=== PATIENT | male | born 1985 | race Hispanic/Latino ===

== ENCOUNTER 2017-10-18 12:20 | Inpatient (IN) | payer MEDICAID ==
[2017-10-18 12:25] VITALS: BMI 23.5
--- NOTE | 2017-10-18 13:15 | C.PDOC ---
History Of Present Illness 32 yr old male with history of heroin and alcohol use, was seen 2 days ago after overdosing of heroin and discharged 24 hrs later, presents to the ER today with complaints of nausea, cramping and diarrhea. Patient reports last use was 48 hrs ago. Patient states he called detox earlier today asking for availability and was told if he comes in before 3pm, he might have a chance. Patient denies SI, HI, fever, chills, chest pain, SOB, vomiting, weakness, numbness or headache. Time Seen by Provider: 10/18/17 13:20 Chief Complaint (Nursing): Substance Abuse History Per: Patient History/Exam Limitations: no limitations Onset/Duration Of Symptoms: Days Past Medical History Reviewed: Historical Data, Nursing Documentation, Vital Signs Vital Signs: Last Vital Signs Temp 97.8 F 10/18/17 16:11 Pulse 80 10/18/17 16:11 Resp 20 10/18/17 16:11 BP 128/78 10/18/17 16:11 Pulse Ox 98 10/18/17 16:11 Family History: States: No Known Family Hx - Social History Hx Alcohol Use: Yes Hx Substance Use: Yes (heroin , xanax) - Immunization History Hx Tetanus Toxoid Vaccination: No Hx Influenza Vaccination: No Hx Pneumococcal Vaccination: No Review Of Systems Except As Marked, All Systems Reviewed And Found Negative. Constitutional: Negative for: Fever, Chills Cardiovascular: Negative for: Chest Pain Respiratory: Negative for: Shortness of Breath Gastrointestinal: Positive for: Nausea, Diarrhea, Other (+ cramping). Negative for: Vomiting Neurological: Negative for: Weakness, Numbness Physical Exam - Physical Exam Appears: Non-toxic, No Acute Distress, Other (no signs of withdrawls) Skin: Warm, Dry, No Rash, Other (+ fresh needle track in both antecubital fossa , no evidence of abscess) Head: Atraumatic, Normacephalic Eye(s): bilateral: Normal Inspection, PERRL, EOMI Oral Mucosa: Moist Cardiovascular: Rhythm Regular, No Murmur, Other (no excelerated rate) Respiratory: Normal Breath Sounds, No Rales, No Rhonchi, No Stridor, No Wheezing Gastrointestinal/Abdominal: Normal Exam, Soft, No Tenderness, No Guarding, No Rebound Extremity: Normal ROM, No Swelling Neurological/Psych: Oriented x3, Normal Speech, Normal Motor, Normal Sensation ED Course And Treatment - Laboratory Results Result Diagrams: 10/18/17 13:32 10/18/17 13:32 O2 Sat by Pulse Oximetry: 98 (RA) Pulse Ox Interpretation: Normal Medical Decision Making Medical Decision Making: PLAN: * Alcohol Serum * Drug Screen * Labs * Urinalysis Pt is medically cleared for detox admission Disposition - Disposition Disposition: HOSPITALIZED Disposition Time: 17:31 Condition: GOOD - Clinical Impression Clinical Impression: Drug abuse - Scribe Statement The provider has reviewed the documentation as recorded by the Addison Finch Provider Attestation: All medical record entries made by the Addison were at my direction and personally dictated by me. I have reviewed the chart and agree that the record accurately reflects my personal performance of the history, physical exam, medical decision making, and the department course for this patient. I have also personally directed, reviewed, and agree with the discharge instructions and disposition.
[2017-10-18 13:40] LABS: BASO # 0.1 K/uL (0.0-0.2); BASO % 0.7 % (0.0-2.0); EOS % 0.1 % (0.0-4.0); HEMOGLOBIN 14.8 g/dL (12.0-18.0); LYMPH # 1.3 K/uL (1.0-4.3); LYMPH % 12.4 % (20.0-40.0); MEAN CELL VOLUME 89.1 fL (80.0-94.0); MEAN CORPUSCULAR HEMOGLOBIN 30.2 pg (27.0-31.0); MEAN CORPUSCULAR HGB CONC 33.9 g/dL (33.0-37.0); MEAN PLATELET VOLUME 8.7 fL (7.2-11.7); MONO # 0.9 K/uL (0.0-0.8); MONO % 9.1 % (0.0-10.0); NEUT % 77.7 % (50.0-75.0); RBC 4.91 Mil/uL (4.40-5.90); RED CELL DISTRIBUTION WIDTH 13.7 % (11.5-14.5); WHITE BLOOD COUNT 10.2 K/uL (4.8-10.8)
[2017-10-18 13:55] LABS: ALB/GLOB RATIO 0.9 (1.0-2.1); ALT/SGPT 41 U/L (21-72); AST/SGOT 43 U/L (17-59); BLOOD UREA NITROGEN 17 mg/dL (9-20); CALCIUM 9.7 mg/dl (8.6-10.4); GFR AFRICAN-AMERICAN > 60; GFR NON-AFRICAN AMERICAN > 60
[2017-10-18 14:52] LABS: URINE BILIRUBIN NEGATIVE (NEGATIVE); URINE BLOOD NEGATIVE (NEGATIVE); URINE CALCIUM OXALATE CRYSTALS OCC /hpf (<OCC); URINE CLARITY Hazy (Clear); URINE COLOR Amber (YELLOW); URINE GLUCOSE (UA) NORMAL (Normal); URINE LEUKOCYTE ESTERASE NEG Leu/uL (Negative); URINE PROTEIN 1+ mg/dL (NEGATIVE)
[2017-10-18 14:58] LABS: BARBITURATES, UR NEGATIVE (NEGATIVE); BENZODIAZEPINES, UR NEGATIVE (NEGATIVE); PHENCYCLIDINE, UR NEGATIVE (NEGATIVE)
[2017-10-18 15:31] LABS: OPIATES, UR POSITIVE (NEGATIVE)
--- NOTE | 2017-10-18 15:52 | PCM.BM ---
<Demetria Augustine - Last Filed: 10/18/17 15:50> Treatment Plan Problems - Problems identified on initial assessmt potiential for opiate withdrawal Date Initiated: 10/18/17 Time Initiated: 15:51 Assessment reference: NA Status: Active Treatment assets and liabiliti Patient Assests: ADL independent, physically healthy Patient Liabilities: relationship conflicts, substance abuse - Milieu Protocol Maintain good personal hygiene: daily Encourage regular showers, daily Remind patient to perform daily oral care, daily Assist patient to perform ADL's Maintain personal safety: every shift Educate patient to report safety concerns to staff, every shift Monitor environment for contraband/sharps Medication safety: Monitor for expected outcome, potential side effects: every shift, Assess barriers to learning: every shift, Assess readiness for medication education: every shift <Norma Covarrubias - Last Filed: 10/20/17 08:55> - Diagnosis (1) Opioid use disorder, severe, dependence Status: Acute Interventions: 10/20/17 08:55 * Assess 7x/week regarding severity of withdrawal * Educate regarding risks, benefits, side effects and alternatives of medications * Use Motivational Interviewing for abstinence * Use CBT for relapse prevention * Medication management for withdrawal symptoms * Encourage medication assisted treatment *
[2017-10-18] MEDS ORDERED: Aluminum Hydroxide/Magnesium Hydroxide Susp (30 mL) PO PRN (16:30)
--- NOTE | 2017-10-19 14:10 | PCM.PSYCH ---
Initial Psychiatric Evaluation - Initial Psychiatric Evaluation Type of Admission: Voluntary Legal Status: Capacity Chief Complaint (in patient's own words): "I'm here for detox" History of Present Illness and Precipitating Events: HPI: 32 y.o. M, from , with 3 daughters (5 yo, 6 yo, 13 yo), recently unemployed and uninsured, who presented to the ED yesterday requesting detox. Patient reports a 2 year history of using heroin. He estimates his daily use at 40 bags of heroin IV/day. Patient also admits to using oxycodone, Xanax and/or Klonopin (2 bars/day), cocaine, crack cocaine, MDMA, and tobacco (1ppd) as well. Denies any use of other substances. He recently had an unintentional overdose 3 days ago, in which he was treated in the ED of [facility] ([place], [place]). That was his last use. Following treatment, patient returned home and began having withdrawal symptoms, thus prompting his arrival here for detox. At this time, patient reports many withdrawal symptoms including nausea, vomiting/ wretching, diarrhea, abdominal pain, subjective fever, chills, tremors, diaphoresis, and trouble staying asleep. Denies any SI/HI, seizures, cough, SOB , CP or BOWEN. Patient does not have any plans following discharge but is interested in a long-term rehab program. Detox Hx: 2x in the past Rehab Hx: Denies Medical Hx: Denies Medications: Denies Psych Hx: Denies Fam Hx: Denies Occupation: Was worked in a warehouse, quit 3 months ago Legal: Denies Current Medications: Active Medications Generic Name Dose Route Start Last Admin Trade Name Freq PRN Reason Stop Dose Admin Al Hydrox/Mg Hydrox/Simethicone 30 ml 10/18/17 16:30 Maalox 30 Ml PO TID PRN Indigestion / Heartburn Clonidine HCl 0.1 mg 10/18/17 16:30 Catapres PO Q8 PRN COWS Score More or Equal to 5 Gabapentin 300 mg 10/19/17 14:00 10/19/17 13:30 Neurontin PO 300 mg TID SANDRA Administration Hydroxyzine HCl 25 mg 10/18/17 16:31 10/18/17 21:17 Atarax PO 25 mg Q6 PRN Administration Agitation Loperamide HCl 2 mg 10/18/17 16:30 Imodium PO Q8 PRN Diarrhea Methadone HCl 15 mg 10/19/17 10:00 10/19/17 09:27 Methadone PO 10/22/17 09:59 15 mg DAILY SANDRA Administration Taper Nicotine 1 patch 10/19/17 11:30 10/19/17 11:31 Nicoderm Cq TD 1 patch DAILY SANDRA Administration Ondansetron HCl 4 mg 10/18/17 16:30 Zofran Tab PO Q8 PRN Nausea/Vomiting Pseudoephedrine HCl 60 mg 10/18/17 16:30 Sudafed Tab PO QID PRN Nasal/Sinus Congestion Trazodone HCl 50 mg 10/18/17 22:00 10/18/17 21:17 Desyrel PO 50 mg HS SANDRA Administration Past Psychiatric History - Past Psychiatric History Previous Treatment History: None History of Abuse: Denies History of ETOH/Drug Use: (+) heroin, opioids, cocaine, crack cocaine, MDMA Pertinent Medical Hx (Current Medical&Sleep Prob, Allergies): Allergies Allergy/AdvReac Type Severity Reaction Status Date / Time No Known Allergies Allergy Verified 10/18/17 12:24 No Known Home Med 10/18/17 Review of Systems - Constitutional Constitutional: Chills, Sweats - Gastrointestinal Gastrointestinal: Abdominal Pain, Diarrhea, Nausea, Vomiting - Neurological Additional comments: (-) Seizure - Psychiatric Psychiatric: Suicidal Ideation ( ) Additional comments: (+) trouble sleeping Mental Status Examination - Personal Presentation Personal Presentation: Looks older than stated age - Affect Affect: Broad - Motor Activity Motor Activity: Calm - Speech Speech: Organized - Mood Mood: Neutral - Formal Thought Process Formal Thought Process: No Impairment - Obsessions/Compulsions Obsessions: No Compulsions: No - Cognitive Functions Orientation: Person, Place, Situation, Time Sensorium: Alert Attention/Concentration: Attentive Abstract Thinking: [place] Estimate of Intelligence: Average Judgement: Intact, as evidence by: Insight regarding need for hospitalization Memory: Recent intact, as evidence by: Ability to recall events of the day, Remote intact, as evidenced by: Abilit to recall sig. 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 Attend groups and activities Supportive therapy and psychoeducation [place] for abstinence CBT for relapse prevention Encourage MAT Refer to rehab or IOP, and self-help groups Smoking cessation with FL Nicotine patch 33 min Projected ELOS: 4-5 days Prognosis: Good with treatment Discharge Plan and Discharge Criteria: Rehab and MAT - Smoking Cessation Smoking Cessation Initiated: Yes
--- NOTE | 2017-10-20 13:35 | PCM.PYCHPN ---
Psychiatric Progress Note - Psychiatric Progress Note Patient seen today, length of contact: 15 min Patient Chief Complaint: "I'm having some trouble sleeping" Problems Identified/Issues Discussed: The pt is seen, chart reviewed, case discussed with staff. Support given, CBT and KS used briefly. Patient does admit to having some difficulty sleeping at night. He is otherwise feeling well overall. No other additional symptoms reported, improving slowly and needs more time. No SEs from medications, risks discussed. After care discussed, patient would like to explore his options with a long-term program such as [facility], following discharge. Medication Change: Yes (detox changes daily, doses of seroquel and trazodone increased) Medical Record Reviewed: Yes Mental Status Examination - Cognitive Function Orientation: Person, Place, Situation, Time Memory: Intact Attention: WNL Concentration: WNL Association: WNL Fund of Knowledge: WNL - Mood Mood: Neutral - Affect Affect: Broad - Speech Speech: Appropriate - Formal Thought Process Formal Thought Process: No Impairment - Suicidal Ideation Suicidal Ideation: No - Homicidal Ideation Homicidal Ideation: No Goal/Treatment Plan - Goal/Treatment Plan Need for Continued Stay: Remain at risks for inpatient hospitalization, Discharge may exacerbated symptoms, Severe functional impairment Progress Toward Problem(s) and Goals/Treatment Plan: Methadone detox Gabapentin for augmentation and benzos/cocaine Monitor benzo wdw sxs As needed medications, will increase dose of trazodone and seroquel to help improved sleep disturbances All risks, benefits and alternatives of the meds discussed, and the pt agreed and understood. Attend groups and activities Supportive therapy and psychoeducation [place] for abstinence CBT for relapse prevention Encourage MAT Refer to rehab or IOP, and self-help groups Smoking cessation with KS Nicotine patch Estimated Date of D/C: 10/23/17 - Smoking Cessation Smoking Cessation Initiated: Yes
--- NOTE | 2017-10-21 14:00 | PCM.PYCHPN ---
Psychiatric Progress Note - Psychiatric Progress Note Patient seen today, length of contact: 16 min Patient Chief Complaint: "I'm feeling much better" Problems Identified/Issues Discussed: The pt is seen, chart reviewed, case discussed with staff. Support given, CBT and MN used briefly. Patient states that he is feeling much better today. Slept fine and feeling well overall. No other additional symptoms reported, improving slowly and needs more time. No SEs from medications, risks discussed. After care discussed, patient would like to continue long-term care at [facility] Medication Change: Yes (detox changes daily) Medical Record Reviewed: Yes Mental Status Examination - Cognitive Function Orientation: Person, Place, Situation, Time Memory: Intact Attention: WNL Concentration: WNL Association: WN Fund of Knowledge: WNL - Mood Mood: Neutral - Affect Affect: Broad - Speech Speech: Appropriate - Formal Thought Process Formal Thought Process: No Impairment - Suicidal Ideation Suicidal Ideation: No - Homicidal Ideation Homicidal Ideation: No Goal/Treatment Plan - Goal/Treatment Plan Need for Continued Stay: Remain at risks for inpatient hospitalization, Discharge may exacerbated symptoms, Severe functional impairment Progress Toward Problem(s) and Goals/Treatment Plan: Methadone detox Gabapentin for augmentation and benzos/cocaine Monitor benzo wdw sxs As needed medications, will continue trazodone and seroquel, as patient's sleep improved All risks, benefits and alternatives of the meds discussed, and the pt agreed and understood. Attend groups and activities Supportive therapy and psychoeducation [place] for abstinence CBT for relapse prevention Encourage MAT Refer to rehab or IOP, and self-help groups Smoking cessation with [place] Nicotine patch Estimated Date of D/C: 10/23/17 - Smoking Cessation Smoking Cessation Initiated: Yes
--- NOTE | 2017-10-21 16:52 | RAD ---
HISTORY: COMPARISON: No prior. TECHNIQUE: Chest PA and lateral FINDINGS: LINES AND TUBES: None. LUNG AND PLEURA: The lungs are hyperinflated and there is peribronchial thickening with chronic changes in both lungs. No focal consolidation. HEART AND MEDIASTINUM: The heart is not enlarged. The hilar and mediastinal contours are within normal limits. SKELETAL STRUCTURES: The bony structures are within normal limits for the patient's age. VISUALIZED UPPER ABDOMEN: Normal. OTHER FINDINGS: None. IMPRESSION: No active pulmonary disease. COPD.
[2017-10-22 09:44] VITALS: RESP 18
--- NOTE | 2017-10-22 12:11 | PCM.PYCHPN ---
Psychiatric Progress Note - Psychiatric Progress Note Patient seen today, length of contact: 17 min Patient Chief Complaint: "I feel sluggish" Problems Identified/Issues Discussed: The pt is seen, chart reviewed, case discussed with staff. Support given, CBT and AL used briefly No new symptoms reported, improving slowly and needs more time No SEs from medications, risks discussed. After care discussed Medication Change: Yes (detox changes daily) Medical Record Reviewed: Yes Mental Status Examination - Cognitive Function Orientation: Person, Place, Situation, Time Memory: Intact Attention: WNL Concentration: WNL Association: WNL Fund of Knowledge: WNL - Mood Mood: Neutral - Affect Affect: Broad - Speech Speech: Appropriate - Formal Thought Process Formal Thought Process: No Impairment - Suicidal Ideation Suicidal Ideation: No - Homicidal Ideation Homicidal Ideation: No Goal/Treatment Plan - Goal/Treatment Plan Need for Continued Stay: Remain at risks for inpatient hospitalization, Discharge may exacerbated symptoms, Severe functional impairment Progress Toward Problem(s) and Goals/Treatment Plan: Methadone detox Gabapentin for augmentation and benzos/cocaine Monitor benzo wdw sxs As needed medications, will continue trazodone and seroquel, as patient's sleep improved All risks, benefits and alternatives of the meds discussed, and the pt agreed and understood. Attend groups and activities Supportive therapy and psychoeducation AL for abstinence CBT for relapse prevention Encourage MAT Refer to rehab or IOP, and self-help groups Smoking cessation with AL Nicotine patch Estimated Date of D/C: 10/23/17
[2017-10-23 06:19] VITALS: BP 115/60
--- NOTE | 2017-10-23 08:36 | PCM.PYCHDC ---
Mental Status Examination - Mental Status Examination Orientation: Person, Place, Situation, Time Memory: Intact Mood: Anxious Affect: Constricted Attention: WNL Concentration: WNL Association: WNL Fund of Knowledge: WNL Formal Thought Process: No Impairment Suicidal Ideation: No Current Homicidal Ideation?: No Discharge Summary - Discharge Note Reason for Hospitalization: Heroin detox Consultations:: List each consultation separately and include: 1. Reason for request. 2. Findings. 3. Follow-up Summary of Hospital Course include:: 1. Description of specific treatment plan utilized for patients during their course of treatmen. 2. Summarize the time- course for resolution of acute symptoms and/or regressed behaviors. 3. Describe issues identified and worked on during hospitalization. 4. Describe medication utilized. 5. Describe medical problems identified and treated. 6. Reassessment of suicide risk Summary of Hospital Course: On admission: 32 y.o. M, from , with 3 daughters (5 yo, 6 yo, 13 yo), recently unemployed and uninsured, who presented to the ED yesterday requesting detox. Patient reports a 2 year history of using heroin. He estimates his daily use at 40 bags of heroin IV/day. Patient also admits to using oxycodone, Xanax and/or Klonopin (2 bars/day), cocaine, crack cocaine, MDMA, and tobacco (1ppd) as well. Denies any use of other substances. He recently had an unintentional overdose 3 days ago, in which he was treated in the ED of [facility] ([place], [place]). That was his last use. Following treatment, patient returned home and began having withdrawal symptoms, thus prompting his arrival here for detox. At this time, patient reports many withdrawal symptoms including nausea, vomiting/ wretching, diarrhea, abdominal pain, subjective fever, chills, tremors, diaphoresis, and trouble staying asleep. Denies any SI/HI, seizures, cough, SOB , CP or BOWEN. Patient does not have any plans following discharge but is interested in a long-term rehab program. Hospital course: The pt was admitted and started on treatment with psychotherapy, support, psychoeducation and medications. KS and CBT used. The pt attended groups and activities, as well as milieu therapy. All the risks and benefits of medications are discussed and the patient understood and agreed. The pt improved with the treatments provided. After care discussed with the patient. He went to [facility] - Diagnosis (1) Opioid use disorder, severe, dependence Status: Acute - Final Diagnosis (DSM 5) Condition upon Discharge: GOOD Disposition: REHAB FACILITY/REHAB UNIT Follow-up Treatment Plan: He refused rx Follow after care plan as discussed. Use relapse prevention skills Return to ER or call 911 if suicidal, homicidal or symptoms relapse. Stay away from stress, alcohol and drugs. See primary doctor regularly and get labs. - Smoking Cessation Smoking Cessation Medication prescribed: No
[2017-10-23 09:47] VITALS: PULSE 96; TEMP 97.6; O2SAT 98
== END 2017-10-23 09:45 | DRG 895 ==
LOC: C.ER 12:20 → C.7D 15:35
PROVIDERS: ADMIT Psychiatry & Neurology Psychiatry; ATTEND Psychiatry & Neurology Psychiatry
PROC: HZ2ZZZZ Detoxification Services for Substance Abuse Treatment (ICD-10-PCS; principal; 2017-10-18)
PROC: HZ46ZZZ Group Counseling for Substance Abuse Treatment, Psychoeducation (ICD-10-PCS; 2017-10-18)
PROC: HZ36ZZZ Individual Counseling for Substance Abuse Treatment, Psychoeducation (ICD-10-PCS; 2017-10-18)
PROC: HZ91ZZZ Pharmacotherapy for Substance Abuse Treatment, Methadone Maintenance (ICD-10-PCS; 2017-10-18)
PROC: HZ59ZZZ Individual Psychotherapy for Substance Abuse Treatment, Supportive (ICD-10-PCS; 2017-10-18)
PROC: HZ90ZZZ Pharmacotherapy for Substance Abuse Treatment, Nicotine Replacement (ICD-10-PCS; 2017-10-18)
DX: F11.23 Opioid dependence with withdrawal (principal); F13.90 Sedative, hypnotic, or anxiolytic use, unspecified, uncomplicated; F14.90 Cocaine use, unspecified, uncomplicated; F17.210 Nicotine dependence, cigarettes, uncomplicated

== ENCOUNTER 2019-01-13 19:27 | Inpatient (IN) | payer SELFPAY ==
[2019-01-13 19:28] VITALS: BMI 23.5
[2019-01-13 21:16] LABS: BASO % 0.5 % (0.0-2.0); EOS # 0.3 K/uL (0.0-0.7); HEMOGLOBIN 13.5 g/dL (12.0-18.0); LYMPH % 20.1 % (20.0-40.0); MEAN CELL VOLUME 90.6 fL (80.0-94.0); MEAN CORPUSCULAR HGB CONC 34.2 g/dL (33.0-37.0); MEAN PLATELET VOLUME 8.5 fL (7.2-11.7); MONO % 10.7 % (0.0-10.0); NEUT # 6.4 K/uL (1.8-7.0); NEUT % 65.7 % (50.0-75.0); NRBC % 0.1 % (0.0-2.0); RBC 4.36 Mil/uL (4.40-5.90); WHITE BLOOD COUNT 9.7 K/uL (4.8-10.8)
[2019-01-13 21:21] LABS: SQUAMOUS EPITHIAL < 1 /hpf (0-5); URINE BILIRUBIN NEGATIVE (NEGATIVE); URINE BLOOD NEGATIVE (NEGATIVE); URINE CLARITY Clear (Clear); URINE COLOR Yellow (YELLOW); URINE GLUCOSE (UA) NORMAL (Normal); URINE LEUKOCYTE ESTERASE NEG Leu/uL (Negative); URINE PROTEIN NEGATIVE (NEGATIVE)
[2019-01-13 21:33] LABS: BARBITURATES, UR NEGATIVE (NEGATIVE); BENZODIAZEPINES, UR NEGATIVE (NEGATIVE); PHENCYCLIDINE, UR NEGATIVE (NEGATIVE)
[2019-01-13 21:37] LABS: ALB/GLOB RATIO 1.1 (1.0-2.1); ALBUMIN 3.6 g/dL (3.5-5.0); ALT/SGPT 41 U/L (21-72); AST/SGOT 50 U/L (17-59); BLOOD UREA NITROGEN 16 mg/dL (9-20); CALCIUM 9.1 mg/dl (8.6-10.4); GFR NON-AFRICAN AMERICAN > 60
[2019-01-13 21:39] LABS: OPIATES, UR POSITIVE (NEGATIVE)
--- NOTE | 2019-01-13 21:56 | C.PDOC ---
History Of Present Illness 33 year old male presents requesting detox from heroin. Denies any medical complaints at this time. Time Seen by Provider: 01/13/19 20:10 Chief Complaint (Nursing): Substance Abuse History Per: Patient History/Exam Limitations: no limitations Onset/Duration Of Symptoms: Hrs Current Symptoms Are (Timing): Still Present Suicide/Self Injury Attempted (Context): None Modifying Factor(s): Other (Heroin) Involuntary Hold By: None Recent travel outside of the [place]: No Past Medical History Reviewed: Historical Data, Nursing Documentation, Vital Signs Vital Signs: Last Vital Signs Temp 98.8 F 01/13/19 20:00 Pulse 84 01/13/19 20:00 Resp 20 01/13/19 20:00 BP 100/68 01/13/19 20:00 Pulse Ox 97 01/13/19 20:00 Primary Care Provider: FAMILY PROVIDER,NO - Medical History PMH: Denies: Diabetes, Hepatitis, HIV, HTN, Seizures, Sexually Transmitted Disease - [facility] Procedures DETOXIFICATION SERVICES FOR SUBSTANCE ABUSE TREATMENT (10/18/17) GROUP ADJUNCT PSYCHOLOGY FACULTY MEMBER FOR SUBSTANCE ABUSE TREATMENT, PSYCHOEDUCATION (10/18/17) INDIV ADJUNCT PSYCHOLOGY FACULTY MEMBER FOR SUBSTANCE ABUSE TREATMENT, PSYCHOEDUCATION (10/18/17) INDIV PSYCHOTHERAPY FOR SUBSTANCE ABUSE TREATMENT, SUPPORT (10/18/17) PHARMACOTHERAPY FOR SUBSTANCE ABUSE, METHADONE MAINT (10/18/17) PHARMACOTHERAPY FOR SUBSTANCE ABUSE, NICOTINE REPLACE (10/18/17) Family History: States: Unknown Family Hx - Social History Hx Alcohol Use: Yes Hx Substance Use: Yes (HEROIN, IVDA CRACK) - Immunization History Hx Tetanus Toxoid Vaccination: No Hx Influenza Vaccination: No Hx Pneumococcal Vaccination: No Review Of Systems Constitutional: Negative for: Fever, Chills Cardiovascular: Negative for: Chest Pain, Palpitations Respiratory: Negative for: Cough, Shortness of Breath Gastrointestinal: Negative for: Nausea, Vomiting Neurological: Negative for: Weakness, Numbness Physical Exam - Physical Exam Appears: Non-toxic Skin: Normal Color, Warm Head: Atraumatic, Normacephalic Eye(s): bilateral: Normal Inspection Oral Mucosa: Moist Throat: Normal Neck: Normal, Supple Chest: Symmetrical Cardiovascular: Rhythm Regular Respiratory: Normal Breath Sounds, No Rales, No Rhonchi, No Wheezing Gastrointestinal/Abdominal: Soft, No Tenderness Back: Normal Inspection, No CVA Tenderness Extremity: Normal ROM (x4), No Pedal Edema, No Calf Tenderness, No Swelling Extremity: Bilateral: Atraumatic Pulses: Left Radial: Normal, Right Radial: Normal Neurological/Psych: Oriented x3, Normal Speech, Normal Sensation Gait: Steady ED Course And Treatment - Laboratory Results Result Diagrams: 01/13/19 21:12 01/13/19 21:12 Lab Results: Total Bilirubin 0.4 mg/dL (0.2-1.3) 01/13/19 21:12 AST 50 U/L (17-59) 01/13/19 21:12 ALT 41 U/L (21-72) 01/13/19 21:12 Alkaline Phosphatase 73 U/L (38-126) 01/13/19 21:12 Total Protein 7.0 g/dL (6.3-8.3) 01/13/19 21:12 Albumin 3.6 g/dL (3.5-5.0) 01/13/19 21:12 Globulin 3.4 gm/dL (2.2-3.9) 01/13/19 21:12 Albumin/Globulin Ratio 1.1 (1.0-2.1) 01/13/19 21:12 Urine Color Yellow (YELLOW) 01/13/19 21:12 Urine Clarity Clear (Clear) 01/13/19 21:12 Urine pH 7.0 (5.0-8.0) 01/13/19 21:12 Ur Specific [place] 1.019 (1.003-1.030) 01/13/19 21:12 Urine Protein Negative mg/dL (NEGATIVE) 01/13/19 21:12 Urine Glucose (UA) Normal mg/dL (Normal) 01/13/19 21:12 Urine Ketones Negative mg/dL (NEGATIVE) 01/13/19 21:12 Urine Blood Negative (NEGATIVE) 01/13/19 21:12 Urine Nitrate Negative (NEGATIVE) 01/13/19 21:12 Urine Bilirubin Negative (NEGATIVE) 01/13/19 21:12 Urine Urobilinogen 2.0 mg/dL (0.2-1.0) 01/13/19 21:12 Ur Leukocyte Esterase Neg Mai/uL (Negative) 01/13/19 21:12 Urine WBC (Auto) < 1 /hpf (0-5) 01/13/19 21:12 Urine RBC (Auto) < 1 /hpf (0-3) 01/13/19 21:12 Ur Squamous Epith Cells < 1 /hpf (0-5) 01/13/19 21:12 O2 Sat by Pulse Oximetry: 97 (Room air) Pulse Ox Interpretation: Normal Progress Note: Pt is medically cleared for detox. Pt seen by crisis counselor and accepted to detox under Dr. Covarrubias. Disposition - Disposition Disposition: HOSPITALIZED Disposition Time: 00:05 Condition: STABLE - Clinical Impression Clinical Impression: Opioid use disorder, severe, dependence - PA / SURGICAL TECH / Resident Statement MD/DO has reviewed & agrees with the documentation as recorded. - Scribe Statement The provider has reviewed the documentation as recorded by the Scribe Clinton Teran All medical record entries made by the Scribe were at my direction and personally dictated by me. I have reviewed the chart and agree that the record accurately reflects my personal performance of the history, physical exam, medical decision making, and the department course for this patient. I have also personally directed, reviewed, and agree with the discharge instructions and disposition.
--- NOTE | 2019-01-13 22:26 | PCM.BM ---
<Geovanny Castro - Last Filed: 01/13/19 22:25> Treatment Plan Problems - Problems identified on initial assessmt Denial Date Initiated: 01/13/19 Time Initiated: 22:26 Assessment reference: NA Status: Active Defensive Coping Date Initiated: 01/13/19 Time Initiated: 22:26 Assessment reference: NA Status: Active Hopelessness Date Initiated: 01/13/19 Time Initiated: 22:26 Assessment reference: NA Status: Active Treatment assets and liabiliti Patient Assests: cooperative, ADL independent, physically healthy, negotiates basic needs Patient Liabilities: substance abuse - Milieu Protocol Maintain good personal hygiene: daily Encourage regular showers, daily Remind patient to perform daily oral care, daily Assist patient to perform ADL's Conduct patient checks and document Observation sheet: Q15 minutes Maintain personal safety: every shift Educate patient to report safety concerns to staff, every shift Monitor environment for contraband/sharps Medication safety: Monitor for expected outcome, potential side effects: every shift, Assess barriers to learning: every shift, Assess readiness for medication education: every shift <Norma Covarrubias - Last Filed: 01/14/19 09:54> - Diagnosis (1) Opioid use disorder, severe, dependence Status: Acute Interventions: 01/14/19 09:54 * Assess 7x/week regarding severity of withdrawal * Educate regarding risks, benefits, side effects and alternatives of medications * Use Motivational Interviewing for abstinence * Use CBT for relapse prevention * Medication management for withdrawal symptoms * Encourage medication assisted treatment *
[2019-01-13] MEDS ORDERED: Aluminum Hydroxide/Magnesium Hydroxide Susp (30 mL) PO PRN (23:57)
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
[2019-01-14 20:25] VITALS: O2SAT 98
[2019-01-15 06:02] VITALS: RESP 18
[2019-01-15 09:04] VITALS: BP 108/74; PULSE 80; TEMP 98.4
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
== END 2019-01-15 11:50 | disposition left against medical advice (07) | DRG 894 ==
LOC: C.ER 19:27 → C.7D 22:13 → OBSVTOIN 01-14 13:56
PROVIDERS: ADMIT Psychiatry & Neurology Psychiatry; ATTEND Psychiatry & Neurology Psychiatry
PROC: HZ2ZZZZ Detoxification Services for Substance Abuse Treatment (ICD-10-PCS; principal; 2019-01-14)
PROC: HZ59ZZZ Individual Psychotherapy for Substance Abuse Treatment, Supportive (ICD-10-PCS; 2019-01-14)
PROC: HZ46ZZZ Group Counseling for Substance Abuse Treatment, Psychoeducation (ICD-10-PCS; 2019-01-14)
DX: F11.23 Opioid dependence with withdrawal (principal); F10.20 Alcohol dependence, uncomplicated; F43.10 Post-traumatic stress disorder, unspecified; F14.10 Cocaine abuse, uncomplicated; F17.210 Nicotine dependence, cigarettes, uncomplicated; R45.851 Suicidal ideations; Y90.0 Blood alcohol level of less than 20 mg/100 ml; B18.2 Chronic viral hepatitis C